=== PATIENT | male | born 1945 | race Caucasian/White ===

== ENCOUNTER 2020-01-01 17:38 | Inpatient (IN) | payer MEDICARE ==
[~2020-01-01] VITALS: Ht 180.3 cm; Wt 108.4 kg
[2020-01-01 18:02] LABS: BASO # 0.1 10*3/uL (0.0-0.1); EOS # 0.1 10*3/uL (0.0-0.4); EOS % 1.6 % (1.0-4.0); HEMATOCRIT 46.8 % (42.0-52.0); HEMOGLOBIN 15.8 g/dl (14.0-18.0); LYMPH # 3.1 10*3/uL (1.3-4.4); LYMPH % 35.8 % (27.0-41.0); MEAN CELL VOLUME 89.8 fl (80.0-94.0); MEAN CORPUSCULAR HGB 30.3 pg (27.0-31.0); MEAN CORPUSCULAR HGB CONC 33.8 g/dl (33.0-37.0); MEAN PLATELET VOLUME 9.9 fl (9.6-12.3); MONO # 0.7 10*3/uL (0.1-1.0); MONO % 7.6 % (3.0-9.0); NEUT # 4.6 10*3/uL (2.3-7.9); NEUT % 53.7 % (47.0-73.0); PLATELET COUNT AUTOMATED 208 10*3/uL (130-400); RED BLOOD COUNT 5.21 10*6/uL (4.50-5.90); RED CELL DISTRI WIDTH 13.1 % (0-14.5); WHITE BLOOD COUNT 8.6 10*3/uL (4.8-10.8)
[2020-01-01 18:15] LABS: ACT PARTIAL THROMBO TIME 26.9 SECONDS (20.0-32.1)
[2020-01-01 18:31] LABS: ALBUMIN 4.2 gm/dl (3.1-4.5); ALKALINE PHOSPHATASE 77 U/L (45-117); BUN 16 mg/dl (7-24); CHLORIDE 106 mmol/L (98-107); CREATININE 1.26 mg/dL (0.70-1.30); POTASSIUM 4.1 mmol/L (3.5-5.1); SGOT/AST 21 IU/L (3-35); SGPT/ALT 32 U/L (12-78); SODIUM 137 mmol/L (136-145); TOTAL PROTEIN 7.5 gm/dL (6.4-8.2)
[2020-01-01 18:32] VITALS: BP 114/61
[2020-01-01 18:34] LABS: TROPONIN I < 0.015 ng/ml (<0.045)
--- NOTE | 2020-01-01 19:00 | NUR ---
NITRO HELD D/T LOW BLOOD PRESSURE DR PATTON NOTIFIED.
--- NOTE | 2020-01-01 19:03 | NUR ---
PATIENT DENIES WOUNDS A&OX4.
[2020-01-01 20:00] VITALS: BP 105/57
[2020-01-01] MEDS ORDERED: PRADAXA150 MG PO (20:39)
[2020-01-01] MEDS ORDERED: CRESTOR40 M1 PO (20:39)
[2020-01-01] MEDS ORDERED: PROZAC20 MG PO (20:40)
[2020-01-01] MEDS ORDERED: GLUCOPHAGE500 M1 PO (20:40)
[2020-01-01] MEDS ORDERED: PROZAC40 M1 PO (20:40)
[2020-01-01] MEDS ORDERED: ATIVAN1 MG PO (20:41)
[2020-01-01] MEDS ORDERED: BIKTARVY 50-201 EACH PO (20:41)
[2020-01-01] MEDS ORDERED: JARDIANCE25 MG PO (20:42)
[2020-01-01] MEDS ORDERED: TRAD5TAB1 PO (20:42)
[2020-01-01] MEDS ORDERED: VITAMIN D31250 MC1 PO (20:43)
[2020-01-01] MEDS ORDERED: TOUJEO SOL300 UNIT/1 SQ (20:43)
--- NOTE | 2020-01-01 20:58 | NUR ---
MED REC UP TO DATE PER PT RECALL & MEDICATION LIST PROVIDED BY PT.
--- NOTE | 2020-01-01 21:03 | NUR ---
'S ANSWERING SERVICE CALLED REGARDING CONSULT. INFORMATION, INCLUDING CALL BACK NUMBER, LEFT WITH [facility]ER CARE THERAPIST.
--- NOTE | 2020-01-01 21:10 | NUR ---
PT MEDICATED WITH PO TYLENOL FOR C/O L SIDED CHEST PAIN RATED 3/10. DESCRIBES A DULL ACHE. WILL MONITOR EFFECTIVENESS. CALL LIGHT IN REACH. BED ALARM INTACT.
[2020-01-02] VITALS: BP 104/52
[2020-01-02 06:27] LABS: BASO # 0.1 10*3/uL (0.0-0.1); EOS # 0.2 10*3/uL (0.0-0.4); EOS % 2.6 % (1.0-4.0); HEMATOCRIT 46.4 % (42.0-52.0); HEMOGLOBIN 15.5 g/dl (14.0-18.0); LYMPH # 2.5 10*3/uL (1.3-4.4); LYMPH % 33.7 % (27.0-41.0); MEAN CELL VOLUME 91.9 fl (80.0-94.0); MEAN CORPUSCULAR HGB 30.7 pg (27.0-31.0); MEAN CORPUSCULAR HGB CONC 33.4 g/dl (33.0-37.0); MEAN PLATELET VOLUME 9.9 fl (9.6-12.3); MONO # 0.7 10*3/uL (0.1-1.0); MONO % 8.9 % (3.0-9.0); NEUT # 3.9 10*3/uL (2.3-7.9); NEUT % 53.3 % (47.0-73.0); PLATELET COUNT AUTOMATED 179 10*3/uL (130-400); RED BLOOD COUNT 5.05 10*6/uL (4.50-5.90); RED CELL DISTRI WIDTH 13.3 % (0-14.5); WHITE BLOOD COUNT 7.3 10*3/uL (4.8-10.8)
[2020-01-02 06:47] LABS: ALBUMIN 3.8 gm/dl (3.1-4.5); BUN 16 mg/dl (7-24); CHLORIDE 107 mmol/L (98-107); POTASSIUM 4.3 mmol/L (3.5-5.1); SODIUM 139 mmol/L (136-145); TRIGLYCERIDES 127 mg/dl (<150); VLDL CHOLESTEROL 25 mg/dL (6-40)
[2020-01-02 06:56] LABS: ALKALINE PHOSPHATASE 70 U/L (45-117); CHOLESTEROL 95 mg/dL (<200); CREATININE 1.18 mg/dL (0.70-1.30); HDL CHOLESTEROL 43 mg/dl (40-60); LDL CHOLESTEROL 27 mg/dL (9-159); PHOSPHOROUS 2.9 mg/dL (2.5-4.9); SGOT/AST 22 IU/L (3-35); SGPT/ALT 28 U/L (12-78); TOTAL PROTEIN 7.1 gm/dL (6.4-8.2)
[2020-01-02 07:31] VITALS: BP 118/62
--- NOTE | 2020-01-02 07:44 | NUR ---
ASSESSMENT COMPLETED AND DOCUMENTED. NO C/O OF DYSPNEA OR CHEST PAIN. RESTING IN BED. VERY PLEASANT AND COOPERATIVE. DEIRDRE CAMP [facility]
--- NOTE | 2020-01-02 08:01 | NUR ---
PT. C/O OF HEADACHE MEDICATED PER JAN. DEIRDRE CAMP SPNRCC
[2020-01-02 08:12] LABS: VITAMIN D, 25-HYDROXY 84.9 ng/mL (30-100)
--- NOTE | 2020-01-02 09:00 | NUR ---
Experience Designer in to talk to patient. Patient states lives at home with family. There are no steps in the home. Physician: shayan Pharmacy: [facility] Home health services: none Patient's level of ADLs: INDEPENDENT Patient has working utilities: all working DME: home oxygen he wears at hs, cane Follow-up physician's appointment after d/c: will be made by hospitalist nurse director upon discharge Does patient want to access PORTAL?: no Discharge plan discussed with patient, he states he recently relocated her from [place] and is living with his nephew and family, he states he is in the process of establishing with primary care physicans and also speciality physicians, he is independent in adls and ambulation with his cane. he states he uses oxygen at but doesn't remember name of the supplier. he stated he will return home when medically stable, discussed with him [facility] and educated on their services, he declines any home needs at this time, case management will follow. JASBIR HUYNH
--- NOTE | 2020-01-02 09:04 | NUR ---
MEDICATION EFFECTIVE FOR HEADACHE. NOW RATES A 1 ON PAIN SCALE. DEIRDRE CAMP [facility]
--- NOTE | 2020-01-02 09:48 | NUR ---
PT. RESTING IN BED QUIETLEY. NO C/O OF PAIN AT THIS TIME. DEIRDRE CAMP SPNR[facility]
[2020-01-02] MEDS ORDERED: VENT7GM INH ×2 (10:07→10:12)
[2020-01-02] MEDS ORDERED: ROSUVASTATIN CA40 MG PO (10:10)
[2020-01-02 11:43] VITALS: BP 126/64
--- NOTE | 2020-01-02 11:43 | NUR ---
C/O OF HEADACHE. MEDICATED WITH NORCO PO PRN. RATES 6 ON PAIN SCALE. DEIRDRE CAMP SP[facility]
--- NOTE | 2020-01-02 13:26 | NUR ---
PT. RESTING IN BED EATING LUNCH. NO C/O PAIN OR DYSPNEA. REPORT GIVEN TO JENNA. DEIRDRE CAMP [facility]
[2020-01-02 16:00] VITALS: BP 125/70
--- NOTE | 2020-01-02 19:35 | NUR ---
MEDICATION FROM HOME TAKEN TO PHARMACY TO BE LABELED.
--- NOTE | 2020-01-02 19:41 | NUR ---
PT RETURNED TO THE FLOOR AT 1935. PER SURGERY, STATES PATIENT CAN HAVE ICE CREAM AND JELLO TONIGHT AND NPO AFTER MIDNIGHT. WATER & ICE CREAM PROVIDED. JELL-O ORDERED FROM [facility]. STATES THEY WILL BRING UPSTAIRS AFTER 8PM. WILL MONITOR. CALL LIGHT IN REACH.
[2020-01-02 20:00] VITALS: BP 108/46
[2020-01-03] VITALS: BP 117/64
[2020-01-03 08:00] VITALS: BP 100/60
--- NOTE | 2020-01-03 08:26 | NUR ---
Shift chart check completed.
--- NOTE | 2020-01-03 09:00 | NUR ---
case management visits with patient, he states he will return home when medically stable and denies any home needs, case management will follow
--- NOTE | 2020-01-03 09:30 | NUR ---
INFORMED CONSENT OBTAINED FOR LEXISCAN NUCLEAR STRESS TEST WITH DR. FERNANDEZ. RESTING EKG NSR WITH PAC'S WITH A RESTING HR OF 96 WITH BP OF 96/50. LUNGS WITH INSPIRATORY WHEEZE WITH SPO2 OF 98% ON ROOM AIR. PT COMPLETED A 1:00 LEXISCAN PROTOCOL RECEIVING LEXISCAN 0.4 MG IV OVER 10 SECONDS. HAD NO CHEST PAIN OR ANY EKG CHANGES. DID EXPERIENCE SHORTNESS OF BREATH AND NAUSEA THAT WAS RELIEVED IN RECOVERY. HAD A PEAK HR OF 112 WITH BP OF 88/58. LAST RECOVERY HR OF 99 WITH BP OF 108/70. AWAITING SCANNING IN STABLE CONDITION.
--- NOTE | 2020-01-03 09:54 | NUR ---
PT REMAINS OFF FLOOR FOR CARDIAC TESTING
--- NOTE | 2020-01-03 11:23 | NUR ---
RETURN FROM STRESS TEST
[2020-01-03 12:00] VITALS: BP 108/84
--- NOTE | 2020-01-03 12:33 | NUR ---
SOLITARIO MARC NOTIFIED PT HAD A 9 BEAT RUN OF VTACH. NOTIFIED PT HAD A 9 BEAT RUN OF VTACH. HE STATES "OK I AM WAITING ON THE RESULTS OF THE STRESS TEST." PT LYING IN BED, ASYMPTOMATIC.
[2020-01-03] MEDS ORDERED: ROSUVASTATIN CA40 MG PO (15:47)
--- NOTE | 2020-01-03 16:54 | NUR ---
Discharge instructions reviewed with patient/family. Patient receptive and verbalizes understanding. Follow-up care understood. Written instructions given to patient/family. iv removed, tele removed. pt has no questions on discharge. given phone number for resident clinic, pt has no primary care physician. pt understands follow up with dr. downey as well as cardiology. wheelchair for discharge JOSEFINA GOODE
== END 2020-01-03 16:54 | disposition home or self-care (01) | DRG 206 ==
LOC: ED 17:38 → 4E 18:45 → EDHOLD 18:45 → 4E 19:12
PROVIDERS: Emergency Medicine; Internal Medicine; ADMIT Internal Medicine
PROC: 4A02XM4 Measurement of Cardiac Total Activity, External Approach (ICD-10-PCS; principal; 2020-01-03)
PROC: 3E073KZ Introduction of Other Diagnostic Substance into Coronary Artery, Percutaneous Approach (ICD-10-PCS; principal; 2020-01-03)
DX: M94.0 Chondrocostal junction syndrome [Tietze] (principal); B20 Human immunodeficiency virus [HIV] disease; J96.10 Chronic respiratory failure, unspecified whether with hypoxia or hypercapnia; E83.41 Hypermagnesemia; J44.9 Chronic obstructive pulmonary disease, unspecified; E11.65 Type 2 diabetes mellitus with hyperglycemia; E78.00 Pure hypercholesterolemia, unspecified; F41.1 Generalized anxiety disorder; E66.9 Obesity, unspecified; Z96.653 Presence of artificial knee joint, bilateral; Z99.81 Dependence on supplemental oxygen; Z87.891 Personal history of nicotine dependence; Z68.33 Body mass index [BMI] 33.0-33.9, adult; Z79.01 Long term (current) use of anticoagulants; Z86.711 Personal history of pulmonary embolism; Z79.899 Other long term (current) drug therapy; Z86.718 Personal history of other venous thrombosis and embolism; Z85.810 Personal history of malignant neoplasm of tongue; Z80.9 Family history of malignant neoplasm, unspecified; Z82.49 Family history of ischemic heart disease and other diseases of the circulatory system

== ENCOUNTER → 2020-01-31 | Outpatient (CLI) | payer MEDICARE ==
[~2020-01-31] MED LIST: ATIVAN1 MG PO; BIKTARVY 50-201 EACH PO; CRESTOR40 M1 PO; GLUCOPHAGE500 M1 PO; JARDIANCE25 MG PO; PRADAXA150 MG PO; PROZAC20 MG PO; PROZAC40 M1 PO; ROSUVASTATIN CA40 MG PO; TOUJEO SOL300 UNIT/1 SQ; TRAD5TAB1 PO; VENT7GM INH; VITAMIN D31250 MC1 PO
[2020-02-01 03:08] LABS: HEMATOCRIT 45.8 % (37.5-51.0); HEMOGLOBIN 16.2 g/dL (13.0-17.7); RBC 5.11 x10E6/uL (4.14-5.80)
[2020-02-01 14:06] LABS: ABSOLUTE CD 4 HELPER 473 /uL (359-1519); CD 4 POS LYMPH, % 22.5 % (30.8-58.5)
[2020-02-01 19:08] LABS: HIV-1 RNA BY PCR <20 (.)
== END | disposition home or self-care (01) ==
LOC: LAB 12:07
PROVIDERS: Specialist
DX: B20 Human immunodeficiency virus [HIV] disease (principal)

== ENCOUNTER → 2020-05-21 | Outpatient (CLI) | payer MEDICARE ==
[2020-05-21 12:56] LABS: BASO # 0.1 10*3/uL (0.0-0.1); BASO % 1.1 % (0.0-1.0); EOS # 0.3 10*3/uL (0.0-0.4); EOS % 3.8 % (1.0-4.0); HEMATOCRIT 48.1 % (42.0-52.0); LYMPH # 2.8 10*3/uL (1.3-4.4); LYMPH % 35.8 % (27.0-41.0); MEAN CELL VOLUME 91.8 fl (80.0-94.0); MEAN CORPUSCULAR HGB 30.7 pg (27.0-31.0); MEAN CORPUSCULAR HGB CONC 33.5 g/dl (33.0-37.0); MEAN PLATELET VOLUME 9.7 fl (9.6-12.3); MONO # 0.7 10*3/uL (0.1-1.0); MONO % 9.1 % (3.0-9.0); NEUT % 49.8 % (47.0-73.0); PLATELET COUNT AUTOMATED 172 10*3/uL (130-400); RED BLOOD COUNT 5.24 10*6/uL (4.50-5.90); RED CELL DISTRI WIDTH 13.3 % (0-14.5); WHITE BLOOD COUNT 7.9 10*3/uL (4.8-10.8)
[2020-05-21 13:27] LABS: ALBUMIN 3.6 gm/dl (3.1-4.5); BUN 23 mg/dl (7-24); CHLORIDE 105 mmol/L (98-107); CREATININE 1.29 mg/dL (0.70-1.30); POTASSIUM 3.9 mmol/L (3.5-5.1); SGOT/AST 14 IU/L (3-35); SGPT/ALT 26 U/L (12-78); SODIUM 134 mmol/L (136-145); TOTAL PROTEIN 7.2 gm/dL (6.4-8.2)
[2020-05-21 13:28] LABS: ALKALINE PHOSPHATASE 75 U/L (45-117)
[2020-05-22 03:06] LABS: HEMATOCRIT 46.3 % (37.5-51.0); HEMOGLOBIN 16.1 g/dL (13.0-17.7); RBC 5.13 x10E6/uL (4.14-5.80); WBC 7.8 x10E3/uL (3.4-10.8)
[2020-05-22 11:09] LABS: CREATININE,URINE 52.2 mg/dL (Not Estab.)
[2020-05-22 15:10] LABS: ABSOLUTE CD 4 HELPER 699 /uL (359-1519); CD 4 POS LYMPH, % 24.1 % (30.8-58.5)
[2020-05-23 14:08] LABS: HIV-1 RNA BY PCR <20 (.)
== END | disposition home or self-care (01) ==
LOC: LAB 12:13
PROVIDERS: Internal Medicine Endocrinology, Diabetes & Metabolism; Internal Medicine Infectious Disease
DX: E11.9 Type 2 diabetes mellitus without complications (principal); Z21 Asymptomatic human immunodeficiency virus [HIV] infection status

== ENCOUNTER 2020-08-24 13:28 | Emergency (ER) | payer MEDICARE ==
[~2020-08-24] VITALS: Wt 115.7 kg
[2020-08-24] MEDS ORDERED: PREDNISONE20 M1 PO (14:35)
== END 2020-08-24 14:36 | disposition home or self-care (01) ==
LOC: ED 13:28
DX: L25.9 Unspecified contact dermatitis, unspecified cause (principal); E11.9 Type 2 diabetes mellitus without complications; F41.9 Anxiety disorder, unspecified; E78.5 Hyperlipidemia, unspecified; Z79.899 Other long term (current) drug therapy; Z79.84 Long term (current) use of oral hypoglycemic drugs; Z79.4 Long term (current) use of insulin

== ENCOUNTER → 2021-03-01 | Outpatient (CLI) | payer MEDICARE ==
[~2021-03-01] MED LIST changes: +PREDNISONE20 M1 PO
[2021-03-01 13:49] LABS: BASO # 0.1 10*3/uL (0.0-0.1); BASO % 1.2 % (0.0-1.0); EOS # 0.3 10*3/uL (0.0-0.4); EOS % 2.9 % (1.0-4.0); HEMATOCRIT 47.3 % (42.0-52.0); LYMPH # 3.7 10*3/uL (1.3-4.4); MEAN CELL VOLUME 89.4 fl (80.0-94.0); MEAN CORPUSCULAR HGB 31.4 pg (27.0-31.0); MEAN CORPUSCULAR HGB CONC 35.1 g/dl (33.0-37.0); MEAN PLATELET VOLUME 9.5 fl (9.6-12.3); MONO # 0.8 10*3/uL (0.1-1.0); MONO % 9.1 % (3.0-9.0); NEUT # 3.7 10*3/uL (2.3-7.9); NEUT % 43.2 % (47.0-73.0); PLATELET COUNT AUTOMATED 207 10*3/uL (130-400); RED BLOOD COUNT 5.29 10*6/uL (4.50-5.90); RED CELL DISTRI WIDTH 13.2 % (0-14.5); WHITE BLOOD COUNT 8.6 10*3/uL (4.8-10.8)
[2021-03-01 14:06] LABS: ALBUMIN 3.7 gm/dl (3.1-4.5); CREATININE 1.42 mg/dL (0.70-1.30); POTASSIUM 4.1 mmol/L (3.5-5.1); TOTAL PROTEIN 7.6 gm/dL (6.4-8.2)
[2021-03-02 04:06] LABS: HEMATOCRIT 47.9 % (37.5-51.0); HEMOGLOBIN 16.7 g/dL (13.0-17.7); RBC 5.32 x10E6/uL (4.14-5.80); WBC 8.2 x10E3/uL (3.4-10.8)
[2021-03-02 20:06] LABS: HIV-1 RNA BY PCR <20 (.)
[2021-03-04 13:06] LABS: ABSOLUTE CD 4 HELPER 670 /uL (359-1519); CD 4 POS LYMPH, % 18.6 % (30.8-58.5)
== END | disposition home or self-care (01) ==
LOC: LAB 13:31
PROVIDERS: ATTEND Internal Medicine Infectious Disease
DX: B20 Human immunodeficiency virus [HIV] disease (principal)

== ENCOUNTER → 2021-07-24 | Outpatient (CLI) | payer MEDICARE ==
[2021-07-24 13:36] LABS: BASO # 0.1 10*3/uL (0.0-0.1); BASO % 0.9 % (0.0-1.0); EOS # 0.2 10*3/uL (0.0-0.4); EOS % 2.4 % (1.0-4.0); HEMATOCRIT 49.1 % (42.0-52.0); LYMPH # 2.6 10*3/uL (1.3-4.4); LYMPH % 34.9 % (27.0-41.0); MEAN CELL VOLUME 87.5 fl (80.0-94.0); MEAN CORPUSCULAR HGB 30.3 pg (27.0-31.0); MEAN CORPUSCULAR HGB CONC 34.6 g/dl (33.0-37.0); MEAN PLATELET VOLUME 9.7 fl (9.6-12.3); MONO # 0.7 10*3/uL (0.1-1.0); MONO % 8.9 % (3.0-9.0); NEUT # 3.9 10*3/uL (2.3-7.9); NEUT % 52.5 % (47.0-73.0); PLATELET COUNT AUTOMATED 221 10*3/uL (130-400); RED BLOOD COUNT 5.61 10*6/uL (4.50-5.90); WHITE BLOOD COUNT 7.4 10*3/uL (4.8-10.8)
[2021-07-24 13:55] LABS: ALBUMIN 3.8 gm/dl (3.1-4.5); CREATININE 1.48 mg/dL (0.70-1.30); TOTAL PROTEIN 7.5 gm/dL (6.4-8.2)
[2021-07-25 05:06] LABS: HEMATOCRIT 47.6 % (37.5-51.0); HEMOGLOBIN 16.8 g/dL (13.0-17.7); RBC 5.42 x10E6/uL (4.14-5.80); WBC 7.3 x10E3/uL (3.4-10.8)
[2021-07-25 14:08] LABS: ABSOLUTE CD 4 HELPER 559 /uL (359-1519); CD 4 POS LYMPH, % 21.5 % (30.8-58.5)
[2021-07-26 00:05] LABS: HIV-1 RNA BY PCR <20 (.)
[2021-07-30 16:07] LABS: TB1 Ag VALUE 0.13 IU/mL (.)
== END | disposition home or self-care (01) ==
LOC: LAB 12:58
PROVIDERS: ATTEND Internal Medicine Infectious Disease
DX: Z11.3 Encounter for screening for infections with a predominantly sexual mode of transmission (principal); B20 Human immunodeficiency virus [HIV] disease; Z72.89 Other problems related to lifestyle; Z79.899 Other long term (current) drug therapy

== ENCOUNTER → 2021-09-17 | Outpatient (CLI) | payer MEDICARE ==
[2021-09-17 16:17] LABS: BUN 24 mg/dl (7-24); CHLORIDE 105 mmol/L (98-107); CHOLESTEROL 189 mg/dL (<200); LDL CHOLESTEROL 105 mg/dL (9-159); POTASSIUM 4.2 mmol/L (3.5-5.1); SODIUM 138 mmol/L (136-145); TRIGLYCERIDES 200 mg/dl (<150)
[2021-09-18 11:07] LABS: CREATININE,URINE 79.9 mg/dL (Not Estab.)
== END | disposition home or self-care (01) ==
LOC: LAB 14:47
PROVIDERS: ATTEND Internal Medicine Endocrinology, Diabetes & Metabolism
DX: E11.9 Type 2 diabetes mellitus without complications (principal)

== ENCOUNTER 2022-01-27 17:15 | Emergency (ER) | payer MEDICARE | END 2022-01-27 19:47 | disposition home or self-care (01) | LOC: ED 17:15 | DX: S52.501A Unspecified fracture of the lower end of right radius, initial encounter for closed fracture (principal); Z79.899 Other long term (current) drug therapy; Z98.890 Other specified postprocedural states; W18.39XA Other fall on same level, initial encounter; Y93.89 Activity, other specified; Y92.89 Other specified places as the place of occurrence of the external cause; Y99.8 Other external cause status ==

== ENCOUNTER → 2022-01-29 | Outpatient (CLI) | payer MEDICARE | END | disposition home or self-care (01) | LOC: ORTHO 01:33 | PROVIDERS: ATTEND Orthopaedic Surgery | DX: S52.251A Displaced comminuted fracture of shaft of ulna, right arm, initial encounter for closed fracture (principal); S52.601A Unspecified fracture of lower end of right ulna, initial encounter for closed fracture; X58.XXXA Exposure to other specified factors, initial encounter; Y93.89 Activity, other specified; Y92.89 Other specified places as the place of occurrence of the external cause; Y99.8 Other external cause status ==

== ENCOUNTER → 2022-02-26 | Outpatient (CLI) | payer MEDICARE ==
[2022-02-26 10:08] LABS: BASO # 0.1 10*3/uL (0.0-0.1); BASO % 0.9 % (0.0-1.0); EOS # 0.2 10*3/uL (0.0-0.4); HEMATOCRIT 48.9 % (42.0-52.0); LYMPH # 2.1 10*3/uL (1.3-4.4); LYMPH % 30.8 % (27.0-41.0); MEAN CELL VOLUME 88.6 fl (80.0-94.0); MEAN CORPUSCULAR HGB 29.7 pg (27.0-31.0); MEAN CORPUSCULAR HGB CONC 33.5 g/dl (33.0-37.0); MEAN PLATELET VOLUME 9.8 fl (9.6-12.3); MONO # 0.6 10*3/uL (0.1-1.0); NEUT # 3.9 10*3/uL (2.3-7.9); PLATELET COUNT AUTOMATED 218 10*3/uL (130-400); RED BLOOD COUNT 5.52 10*6/uL (4.50-5.90); RED CELL DISTRI WIDTH 13.3 % (0-14.5); WHITE BLOOD COUNT 6.9 10*3/uL (4.8-10.8)
[2022-02-26 10:27] LABS: ALKALINE PHOSPHATASE 77 U/L (45-117); BUN 21 mg/dl (7-24); CHLORIDE 108 mmol/L (98-107); CREATININE 1.19 mg/dL (0.70-1.30); SGOT/AST 13 IU/L (3-35); SGPT/ALT 26 U/L (12-78); SODIUM 142 mmol/L (136-145)
[2022-02-27 01:06] LABS: HEMATOCRIT 48.9 % (37.5-51.0); HEMOGLOBIN 16.8 g/dL (13.0-17.7); RBC 5.47 x10E6/uL (4.14-5.80); WBC 6.7 x10E3/uL (3.4-10.8)
[2022-02-27 13:07] LABS: ABSOLUTE CD 4 HELPER 588 /uL (359-1519)
[2022-02-27 19:06] LABS: HIV-1 RNA BY PCR <20 (.)
== END | disposition home or self-care (01) ==
LOC: ORTHO 01:02 → LAB 01:02 → ORTHO 10:57
PROVIDERS: Internal Medicine Infectious Disease; ATTEND Orthopaedic Surgery
DX: S52.501D Unspecified fracture of the lower end of right radius, subsequent encounter for closed fracture with routine healing (principal); Z21 Asymptomatic human immunodeficiency virus [HIV] infection status; X58.XXXD Exposure to other specified factors, subsequent encounter

== ENCOUNTER → 2022-03-12 | Outpatient (CLI) | payer MEDICARE | END | disposition home or self-care (01) | LOC: ORTHO 01:49 | PROVIDERS: ATTEND Orthopaedic Surgery | DX: S52.501D Unspecified fracture of the lower end of right radius, subsequent encounter for closed fracture with routine healing (principal); X58.XXXD Exposure to other specified factors, subsequent encounter ==

== ENCOUNTER → 2022-04-03 | Outpatient (CLI) | payer MEDICARE ==
[2022-04-03 15:16] LABS: POTASSIUM 4.2 mmol/L (3.5-5.1)
[2022-04-03 15:30] LABS: CREATININE 1.46 mg/dL (0.70-1.30)
== END | disposition home or self-care (01) ==
LOC: LAB 14:17
PROVIDERS: ATTEND Internal Medicine Endocrinology, Diabetes & Metabolism
DX: E11.9 Type 2 diabetes mellitus without complications (principal); E78.5 Hyperlipidemia, unspecified

== ENCOUNTER → 2022-10-01 | Outpatient (CLI) | payer MEDICARE ==
[2022-10-01 15:21] LABS: BASO # 0.1 10*3/uL (0.0-0.1); BASO % 1.2 % (0.0-1.0); EOS # 0.2 10*3/uL (0.0-0.4); EOS % 2.6 % (1.0-4.0); HEMATOCRIT 50.2 % (42.0-52.0); LYMPH # 2.6 10*3/uL (1.3-4.4); LYMPH % 41.1 % (27.0-41.0); MEAN CELL VOLUME 92.1 fl (80.0-94.0); MEAN CORPUSCULAR HGB 31.2 pg (27.0-31.0); MEAN CORPUSCULAR HGB CONC 33.9 g/dl (33.0-37.0); MEAN PLATELET VOLUME 9.5 fl (9.6-12.3); MONO # 0.6 10*3/uL (0.1-1.0); MONO % 8.7 % (3.0-9.0); NEUT % 46.1 % (47.0-73.0); PLATELET COUNT AUTOMATED 206 10*3/uL (130-400); RED BLOOD COUNT 5.45 10*6/uL (4.50-5.90); RED CELL DISTRI WIDTH 13.2 % (0-14.5); WHITE BLOOD COUNT 6.4 10*3/uL (4.8-10.8)
[2022-10-01 15:45] LABS: BUN 29 mg/dl (7-24); CHLORIDE 108 mmol/L (98-107); CHOLESTEROL 178 mg/dL (<200); CREATININE 1.39 mg/dL (0.70-1.30); POTASSIUM 4.5 mmol/L (3.5-5.1); SGOT/AST 15 IU/L (3-35); SGPT/ALT 25 U/L (12-78); SODIUM 140 mmol/L (136-145); TRIGLYCERIDES 138 mg/dl (<150)
[2022-10-01 15:46] LABS: ALKALINE PHOSPHATASE 67 U/L (45-117); LDL CHOLESTEROL 109 mg/dL (9-159); TOTAL PROTEIN 7.4 gm/dL (6.4-8.2)
== END | disposition home or self-care (01) ==
LOC: LAB 14:47
PROVIDERS: Family Medicine; ATTEND Family Medicine
DX: E11.9 Type 2 diabetes mellitus without complications (principal)

== ENCOUNTER → 2022-11-06 | Outpatient (CLI) | payer MEDICARE ==
[2022-11-06 15:31] LABS: BASO # 0.1 10*3/uL (0.0-0.1); EOS # 0.1 10*3/uL (0.0-0.4); EOS % 1.7 % (1.0-4.0); HEMATOCRIT 49.8 % (42.0-52.0); LYMPH # 1.9 10*3/uL (1.3-4.4); LYMPH % 27.1 % (27.0-41.0); MEAN CELL VOLUME 89.2 fl (80.0-94.0); MEAN CORPUSCULAR HGB 30.8 pg (27.0-31.0); MEAN CORPUSCULAR HGB CONC 34.5 g/dl (33.0-37.0); MEAN PLATELET VOLUME 9.6 fl (9.6-12.3); MONO # 0.7 10*3/uL (0.1-1.0); MONO % 9.1 % (3.0-9.0); NEUT # 4.3 10*3/uL (2.3-7.9); NEUT % 60.7 % (47.0-73.0); PLATELET COUNT AUTOMATED 208 10*3/uL (130-400); RED BLOOD COUNT 5.58 10*6/uL (4.50-5.90); RED CELL DISTRI WIDTH 13.3 % (0-14.5); WHITE BLOOD COUNT 7.1 10*3/uL (4.8-10.8)
[2022-11-06 15:53] LABS: ALKALINE PHOSPHATASE 74 U/L (46-116); BUN 20 mg/dl (9-23); CHLORIDE 103 mmol/L (98-107); CREATININE 1.18 mg/dL (0.70-1.30); POTASSIUM 4.3 mmol/L (3.4-5.1); SGPT/ALT 20 U/L (10-49); SODIUM 137 mmol/L (136-145); TOTAL PROTEIN 7.1 gm/dL (6.0-8.0)
[2022-11-07 04:06] LABS: HEMATOCRIT 49.5 % (37.5-51.0); HEMOGLOBIN 17.6 g/dL (13.0-17.7); RBC 5.61 x10E6/uL (4.14-5.80); WBC 7.2 x10E3/uL (3.4-10.8)
[2022-11-07 09:07] LABS: CREATININE,URINE 96.3 mg/dL (Not Estab.)
[2022-11-07 14:07] LABS: ABSOLUTE CD 4 HELPER 584 /uL (359-1519); ABSOLUTE CD8 SUPRESSOR 838 /uL (109-897); CD 4 POS LYMPH, % 29.2 % (30.8-58.5); CD 8 POS LYMPH, % 41.9 % (12.0-35.5)
[2022-11-08 00:06] LABS: HIV-1 RNA BY PCR <20 (.)
[2022-11-08 17:06] LABS: TB1 Ag VALUE 0.32 IU/mL (.)
[2022-11-10 07:43] LABS: NRBC MP; WBC MP
== END | disposition home or self-care (01) ==
LOC: LAB 14:25
PROVIDERS: Internal Medicine Endocrinology, Diabetes & Metabolism; ATTEND Internal Medicine Infectious Disease
DX: B20 Human immunodeficiency virus [HIV] disease (principal); E11.9 Type 2 diabetes mellitus without complications

== ENCOUNTER → 2023-06-09 | Outpatient (CLI) | payer MEDICARE ==
[2023-06-09 14:31] LABS: BASO # 0.1 10*3/uL (0.0-0.1); EOS # 0.1 10*3/uL (0.0-0.4); HEMATOCRIT 51.7 % (42.0-52.0); LYMPH # 2.6 10*3/uL (1.3-4.4); LYMPH % 38.1 % (27.0-41.0); MEAN CELL VOLUME 91.2 fl (80.0-94.0); MEAN CORPUSCULAR HGB 30.9 pg (27.0-31.0); MEAN CORPUSCULAR HGB CONC 33.8 g/dl (33.0-37.0); MEAN PLATELET VOLUME 9.6 fl (9.6-12.3); MONO # 0.6 10*3/uL (0.1-1.0); MONO % 8.5 % (3.0-9.0); NEUT # 3.5 10*3/uL (2.3-7.9); PLATELET COUNT AUTOMATED 216 10*3/uL (130-400); RED BLOOD COUNT 5.67 10*6/uL (4.50-5.90); RED CELL DISTRI WIDTH 13.3 % (0-14.5); WHITE BLOOD COUNT 6.9 10*3/uL (4.8-10.8)
[2023-06-09 14:42] LABS: URINE CREATININE RANDOM 142.32 mg/dL
[2023-06-09 14:59] LABS: POTASSIUM 3.5 mmol/L (3.4-5.1); TOTAL PROTEIN 7.3 gm/dL (6.0-8.0)
[2023-06-10 06:08] LABS: HEMATOCRIT 50.8 % (37.5-51.0); HEMOGLOBIN 17.3 g/dL (13.0-17.7); RBC 5.62 x10E6/uL (4.14-5.80); WBC 6.9 x10E3/uL (3.4-10.8)
[2023-06-10 12:08] LABS: RPR REFLEX CHARGE CHG FOR REFLEX
[2023-06-10 15:07] LABS: TREPONEMA PALLIDUM AB Reactive (Non Reactive)
[2023-06-10 16:08] LABS: ABSOLUTE CD 4 HELPER 845 /uL (359-1519); CD 4 POS LYMPH, % 31.3 % (30.8-58.5)
[2023-06-10 19:06] LABS: HIV-1 RNA BY PCR <20 (.)
== END | disposition home or self-care (01) ==
LOC: LAB 13:55
PROVIDERS: Internal Medicine Endocrinology, Diabetes & Metabolism; ATTEND Internal Medicine Infectious Disease
DX: E11.9 Type 2 diabetes mellitus without complications (principal); E78.5 Hyperlipidemia, unspecified; Z21 Asymptomatic human immunodeficiency virus [HIV] infection status

== ENCOUNTER → 2024-01-27 | Outpatient (CLI) | payer MEDICARE ==
[~2024-01-27] MED LIST changes: +DEXAMETHASONE/NE5 M1 OPH; +DOXYCYCLINE HY100 M3 PO; +EZALLOR SPRINKLE5 MG PO; +NEURONTIN300 MG PO; +PROVENTIL HFA6.7 GM INH; +SEMAGLUTIDE SQ; +TAMIFLU 75MG CA75 MG PO
[2024-01-27 14:31] LABS: BASO % 0.7 % (0.0-1.0); EOS # 0.1 10*3/uL (0.0-0.4); EOS % 1.8 % (1.0-4.0); HEMATOCRIT 47.4 % (42.0-52.0); MEAN CELL VOLUME 90.3 fl (80.0-94.0); MEAN CORPUSCULAR HGB CONC 34.4 g/dl (33.0-37.0); MEAN PLATELET VOLUME 9.5 fl (9.6-12.3); MONO # 0.5 10*3/uL (0.1-1.0); MONO % 8.6 % (3.0-9.0); NEUT % 53.5 % (47.0-73.0); PLATELET COUNT AUTOMATED 169 10*3/uL (130-400); RED BLOOD COUNT 5.25 10*6/uL (4.50-5.90); RED CELL DISTRI WIDTH 13.9 % (0-14.5); WHITE BLOOD COUNT 5.6 10*3/uL (4.8-10.8)
[2024-01-27 15:05] LABS: ALKALINE PHOSPHATASE 67 U/L (46-116); BUN 23 mg/dl (9-23); CHLORIDE 107 mmol/L (98-107); POTASSIUM 4.6 mmol/L (3.4-5.1); SGPT/ALT 17 U/L (5-49); TOTAL PROTEIN 7.2 gm/dL (6.0-8.0)
[2024-01-27 15:10] LABS: CHOLESTEROL 110 mg/dL (<200); LDL CHOLESTEROL 45 mg/dL (9-159); TRIGLYCERIDES 122 mg/dl (<150)
[2024-01-28 04:07] LABS: HEMATOCRIT 47.4 % (37.5-51.0); HEMOGLOBIN 16.2 g/dL (13.0-17.7); WBC 5.5 x10E3/uL (3.4-10.8)
[2024-01-28 17:07] LABS: ABSOLUTE CD 4 HELPER 382 /uL (359-1519); CD 4 POS LYMPH, % 20.1 % (30.8-58.5)
[2024-01-28 19:06] LABS: HIV-1 RNA BY PCR <20 (.)
== END | disposition home or self-care (01) ==
LOC: LAB 14:03
PROVIDERS: Internal Medicine Infectious Disease; ATTEND Internal Medicine Endocrinology, Diabetes & Metabolism
DX: E11.9 Type 2 diabetes mellitus without complications (principal); E78.5 Hyperlipidemia, unspecified; B20 Human immunodeficiency virus [HIV] disease

== ENCOUNTER → 2024-06-22 | Outpatient (CLI) | payer MEDICARE ==
[2024-06-22 14:05] LABS: BASO # 0.1 10*3/uL (0.0-0.1); BASO % 1.3 % (0.0-1.0); EOS # 0.2 10*3/uL (0.0-0.4); EOS % 3.2 % (1.0-4.0); LYMPH # 2.2 10*3/uL (1.3-4.4); LYMPH % 40.6 % (27.0-41.0); MEAN CELL VOLUME 95.6 fl (80.0-94.0); MEAN CORPUSCULAR HGB 31.2 pg (27.0-31.0); MEAN CORPUSCULAR HGB CONC 32.6 g/dl (33.0-37.0); MEAN PLATELET VOLUME 10.1 fl (9.6-12.3); MONO # 0.5 10*3/uL (0.1-1.0); MONO % 10.1 % (3.0-9.0); NEUT # 2.4 10*3/uL (2.3-7.9); NEUT % 44.4 % (47.0-73.0); PLATELET COUNT AUTOMATED 193 10*3/uL (130-400); RED BLOOD COUNT 4.81 10*6/uL (4.50-5.90); RED CELL DISTRI WIDTH 13.4 % (0-14.5); WHITE BLOOD COUNT 5.4 10*3/uL (4.8-10.8)
[2024-06-22 14:36] LABS: FREE T4 1.04 ng/dl (0.89-1.76); VITAMIN D, 25-HYDROXY 69.5 ng/mL (30-100)
== END | disposition home or self-care (01) ==
LOC: LAB 13:16
PROVIDERS: ATTEND Internal Medicine
DX: Z12.5 Encounter for screening for malignant neoplasm of prostate (principal); E11.40 Type 2 diabetes mellitus with diabetic neuropathy, unspecified

== ENCOUNTER → 2024-08-24 | Outpatient (CLI) | payer MEDICARE ==
[2024-08-24 13:41] LABS: BASO # 0.1 10*3/uL (0.0-0.1); BASO % 0.9 % (0.0-1.0); EOS # 0.1 10*3/uL (0.0-0.4); EOS % 2.6 % (1.0-4.0); LYMPH % 37.2 % (27.0-41.0); MEAN CELL VOLUME 93.4 fl (80.0-94.0); MEAN CORPUSCULAR HGB 31.1 pg (27.0-31.0); MEAN CORPUSCULAR HGB CONC 33.3 g/dl (33.0-37.0); MEAN PLATELET VOLUME 9.6 fl (9.6-12.3); MONO # 0.5 10*3/uL (0.1-1.0); MONO % 9.2 % (3.0-9.0); NEUT # 2.6 10*3/uL (2.3-7.9); NEUT % 49.9 % (47.0-73.0); PLATELET COUNT AUTOMATED 181 10*3/uL (130-400); RED BLOOD COUNT 5.14 10*6/uL (4.50-5.90); RED CELL DISTRI WIDTH 13.4 % (0-14.5); WHITE BLOOD COUNT 5.3 10*3/uL (4.8-10.8)
[2024-08-24 14:10] LABS: POTASSIUM 4.6 mmol/L (3.4-5.1)
[2024-08-25 06:10] LABS: RBC 5.11 x10E6/uL (4.14-5.80); WBC 5.3 x10E3/uL (3.4-10.8)
[2024-08-25 16:09] LABS: ABSOLUTE CD 4 HELPER 517 /uL (359-1519); CD 4 POS LYMPH, % 24.6 % (30.8-58.5)
[2024-08-26 00:06] LABS: HIV-1 RNA BY PCR <20 (.)
== END | disposition home or self-care (01) ==
LOC: LAB 13:13
PROVIDERS: ATTEND Internal Medicine Infectious Disease
DX: Z12.5 Encounter for screening for malignant neoplasm of prostate (principal); B20 Human immunodeficiency virus [HIV] disease; D72.829 Elevated white blood cell count, unspecified

== ENCOUNTER → 2024-10-17 | Outpatient (CLI) | payer MEDICARE ==
[2024-10-17 13:46] LABS: BILIRUBIN Negative (Negative); BLOOD Negative (Negative); CLARITY Clear (Clear); COLOR Yellow (Yellow); GLUCOSE 3+ (Negative); KETONE Negative (Negative); LEUKO ESTERASE Negative (Negative); NITRITE Negative (Negative); PH 5.5 (4.5-8.0); SPECIFIC GRAVITY >= 1.030 (1.001-1.030)
[2024-10-17 13:54] LABS: EPITHELIAL CELLS 0-2; RBC 0-2 rbc/hpf (0-2)
[2024-10-17 13:56] LABS: URINE CREATININE RANDOM 123.18 mg/dL
[2024-10-17 14:13] LABS: ALKALINE PHOSPHATASE 66 U/L (46-116); BUN 22 mg/dl (9-23); CHLORIDE 106 mmol/L (98-107); CPK 81 U/L (34-171); POTASSIUM 4.1 mmol/L (3.4-5.1); SGPT/ALT 21 U/L (5-49); TOTAL PROTEIN 6.9 gm/dL (6.0-8.0)
[2024-10-17 14:16] LABS: VITAMIN D, 25-HYDROXY 72.6 ng/mL (30-100)
== END | disposition home or self-care (01) ==
LOC: LAB 13:19 → US 14:30
PROVIDERS: ATTEND Internal Medicine Nephrology
DX: N18.32 Chronic kidney disease, stage 3b (principal); E53.9 Vitamin B deficiency, unspecified

== ENCOUNTER → 2025-10-05 | Outpatient (CLI) | payer MEDICARE ==
[2025-10-05 15:08] LABS: BASO # 0.1 10*3/uL (0.0-0.1); BASO % 1.3 % (0.0-1.0); EOS # 0.1 10*3/uL (0.0-0.4); EOS % 2.3 % (1.0-4.0); MEAN CELL VOLUME 92.6 fl (80.0-94.0); MEAN CORPUSCULAR HGB 31.3 pg (27.0-31.0); MEAN PLATELET VOLUME 9.5 fl (9.6-12.3); MONO # 0.5 10*3/uL (0.1-1.0); MONO % 8.6 % (3.0-9.0); NEUT # 3.7 10*3/uL (2.3-7.9); NEUT % 59.3 % (47.0-73.0); NUCLEATED RED BLOOD CELL 0.0 % (0.0-0.0); NUCLEATED RED BLOOD CELL 0.0 10*3/uL (0.0-0.0); PLATELET COUNT AUTOMATED 189 10*3/uL (130-400); RED CELL DISTRI WIDTH 13.3 % (0-14.5)
[2025-10-05 15:36] LABS: BUN 23.0 mg/dl (9-23); SGPT/ALT 16.0 U/L (5-49)
[2025-10-06 04:06] LABS: RBC 5.10 x10E6/uL (4.14-5.80); WBC 6.4 x10E3/uL (3.4-10.8)
[2025-10-06 12:07] LABS: ABSOLUTE CD 4 HELPER 534 /uL (359-1519); CD 4 POS LYMPH, % 28.1 % (30.8-58.5)
[2025-10-07 14:07] LABS: HIV-1 RNA BY PCR <20 (.)
== END | disposition home or self-care (01) ==
LOC: LAB 14:32
PROVIDERS: ATTEND Internal Medicine Infectious Disease
DX: B20 Human immunodeficiency virus [HIV] disease (principal)